=== PATIENT | male | born 1950 | race Caucasian/White ===

== ENCOUNTER 2016-06-25 08:22 | Day surgery (SDC) | payer MEDICARE ==
[~2016-06-25] VITALS: Ht 165.1 cm; Wt 63.5 kg
[~2016-06-25 08:22] MED LIST: BENTYL10 M1 PO; MECLIZINE 25MG25 MG PO; NOMEDS; VICODIN 5/500 T1 TAB PO; ZOFRAN ODT4 MG PO
[2016-06-25 12:10] VITALS: BP 120/67
--- NOTE | 2016-06-28 09:03 | Operative Note ---
Endoscopy Report Date: 06/25/16 Preoperative diagnosis: Abdominal pain Procedure Type of procedure: 1. Esophagogastroduodenoscopy with biopsies 2. Total colonoscopy to terminal ileum with polypectomy and ascending colon Indications: 66-year-old white male. Patient has recently had relatively chronic discomfort mostly in the LEFT upper quadrant with some radiation to the LEFT lower abdomen. He describes symptoms of heartburn and dyspepsia. He has nausea. Symptoms are often worse with coffee, tea, and soft drinks. He has bowel irregularity. Of note, in July 2006 patient had a colonoscopy at the [facility] for rectal bleeding and was found to have a polyp. In February 2007 patient was admitted as an inpatient and I had performed upper endoscopy and colonoscopy which revealed diverticulosis. He had seen Dr. Alejo Dominguez subsequently on several occasions for RIGHT lower quadrant discomfort and bloating. In 2010 patient was diagnosed with rectal cancer and underwent low anterior resection with coloanal anastomosis and creation of ileostomy by Dr. Casimiro Paulino and. He did develop a subsequent small bowel obstruction at the ileostomy takedown which required laparotomy with small bowel resection by Dr. Barbosa. Dr. Barbosa performed colonoscopy in November 2011 which revealed diverticulosis. In September 2014 I had performed colonoscopy which revealed diverticulosis. Procedure: Consent was obtained and patient was taken to same-day surgery endoscopy procedure room. He was positioned in a lateral decubitus position. Adequate intravenous sedation was achieved. Attention was first turned to upper endoscopy. Olympus endoscope was inserted via the oropharynx. Esophagus appeared normal. There was minor possible beginnings of Schatzki's ring of the gastroesophageal junction. There is a very tiny sliding hiatal hernia. Stomach lining appeared relatively unremarkable. Gastric antral mucosal biopsy was obtained for CLOtest for H. pylori. Duodenum appeared normal. Several biopsies were obtained at the gastroesophageal junction. Endoscope was withdrawn. Patient was then repositioned for colonoscopy. Digital examination revealed diminished sphincter tone. Anastomosis was palpable 2-3 cm from the anal verge. Variable stiffness Olympus colonoscope was inserted via the anus and advanced to the cecum without difficulty. Colonic preparation was fair but adequate visualization was achieved with irrigationing and suctioning. Colonoscope was advanced into the terminal ileum which revealed some lymphoid hyperplasia but otherwise unremarkable. In the ascending colon there is a small polyp removed in a piecemeal fashion using cold biopsy forceps. Copious withdrawn through the colon. There was pandiverticulosis. Findings: Small hiatal hernia Possibly beginnings of Schatzki's ring Diminutive polyp in the ascending colon Low coloanal anastomosis 2-3 cm from the anal verge Diverticulosis Recommendations: No clear etiology to his symptoms of left-sided abdominal pain. Follow-up on the results of his biopsies and treat appropriately. Likely plan for repeat colonoscopy in 3 years at 0903
== END 2016-06-25 10:55 | disposition home or self-care (01) ==
LOC: SDC 08:22
PROVIDERS: Surgery
PROC: 0DB48ZX Excision of Esophagogastric Junction, Via Natural or Artificial Opening Endoscopic, Diagnostic (ICD-10-PCS; 2016-06-25)
PROC: 0DB68ZX Excision of Stomach, Via Natural or Artificial Opening Endoscopic, Diagnostic (ICD-10-PCS; 2016-06-25)
PROC: 0DBK8ZX Excision of Ascending Colon, Via Natural or Artificial Opening Endoscopic, Diagnostic (ICD-10-PCS; principal; 2016-06-25 09:00)
DX: K57.30 Diverticulosis of large intestine without perforation or abscess without bleeding (principal); R10.32 Left lower quadrant pain; D12.2 Benign neoplasm of ascending colon; Z85.048 Personal history of other malignant neoplasm of rectum, rectosigmoid junction, and anus; R10.12 Left upper quadrant pain; K22.2 Esophageal obstruction; K44.9 Diaphragmatic hernia without obstruction or gangrene

== ENCOUNTER → 2016-10-31 | Outpatient (CLI) | payer MEDICARE ==
--- NOTE | 2016-10-31 14:42 | RADIOLOGY REPORT PS360 ---
CERVICAL SPINE 6 OR MORE VIEWS CLINICAL INDICATION: DIZZINESS, NECK PAIN, HX COLON CA, CERVICOGENIC HEADACHE ORDERING PHYSICIAN: SENAIT LUGO PATIENT AGE: 66 years COMPARISON: None FINDINGS: There is normal alignment. Mild degenerative disc disease is present at C5-C6 with decrease in the disc space. There appears to be partial fusion at C3-C4. There is approximately 2 mm anterolisthesis of C4 on C5 in flexion which is normal in neutral and extension. No prevertebral soft tissue swelling. No lytic or blastic change. No obvious foraminal narrowing on the oblique views. IMPRESSION: 1. Degenerative disc disease C5-C6. 2. Partial fusion of C3-C4. 3. Mild anterior subluxation of C4 on C5 of 2 mm in flexion which is of questionable clinical significance
--- NOTE | 2016-11-01 07:02 | RADIOLOGY REPORT PS360 ---
MRA-HEAD W/O CLINICAL INDICATION: DIZZINESS,VERTEBRO BASILAR INSUFFICIENCY,CERVICOGENIC HEADACHE ORDERING PHYSICIAN: SENAIT LUGO PATIENT AGE: 66 years COMPARISON: MRI of 05/08/2016 TECHNIQUE: 3-D [id number] images obtained without contrast with multiplanar MIP reconstructions FINDINGS: Left vertebral artery is dominant. There are prominent posterior communicating arteries bilaterally. Basilar artery is somewhat small however, there are prominent posterior communicating arteries from the internal carotids and normal-appearing posterior cerebral arteries.. No evidence of Posterior cerebral arteries have an unremarkable appearance.. No aneurysm. No major intracranial occlusive process is apparent. No evidence of arteriovenous malformation. Single shot MR the image shows no evidence of sagittal sinus thrombosis IMPRESSION: 1. No aneurysm or AVM or major intracranial occlusive process. 2. The basilar artery is somewhat small however, there are prominent posterior communicating arteries bilaterally up into support posterior circulation with normal appearing posterior cerebral arteries.
--- NOTE | 2016-11-01 07:02 | RADIOLOGY REPORT PS360 ---
MRA-HEAD W/O CLINICAL INDICATION: DIZZINESS,VERTEBRO BASILAR INSUFFICIENCY,CERVICOGENIC HEADACHE ORDERING PHYSICIAN: SENAIT LUGO PATIENT AGE: 66 years COMPARISON: MRI of 05/08/2016 TECHNIQUE: 3-D [id number] images obtained without contrast with multiplanar MIP reconstructions FINDINGS: Left vertebral artery is dominant. There are prominent posterior communicating arteries bilaterally. Basilar artery is somewhat small however, there are prominent posterior communicating arteries from the internal carotids and normal-appearing posterior cerebral arteries.. No evidence of Posterior cerebral arteries have an unremarkable appearance.. No aneurysm. No major intracranial occlusive process is apparent. No evidence of arteriovenous malformation. Single shot MR the image shows no evidence of sagittal sinus thrombosis IMPRESSION: 1. No aneurysm or AVM or major intracranial occlusive process. 2. The basilar artery is somewhat small however, there are prominent posterior communicating arteries bilaterally up into support posterior circulation with normal appearing posterior cerebral arteries.
== END ==
LOC: RAD 09:04
DX: R42 Dizziness and giddiness (principal); R51 Headache; M54.2 Cervicalgia; G45.0 Vertebro-basilar artery syndrome; Z85.038 Personal history of other malignant neoplasm of large intestine